=== PATIENT | female | born 1960 | race Hispanic/Latino ===

== ENCOUNTER 2017-01-10 12:36 | Observation (INO) | payer BC ==
[2017-01-10 13:38] LABS: #Eosinphils 0.1 thou/uL (0.0-0.7); #Lymphocytes 0.7 thou/uL (1.20-3.40); #Monocytes 0.8 thou/uL (0.11-0.59); #Neutrophils 7.1 thou/uL (1.40-6.50); %Eosinophils 1.1 % (0.0-10.0); %Lymphocytes 7.6 % (21.0-51.0); %Monocytes 8.8 % (0.0-10.0); Hematocrit 35.3 % (36.0-47.0); Mean Platelet Volume 6.3 fL (7.4-10.4); Red Blood Cell (RBC) Count 3.81 mill/uL (4.20-5.40); White Blood Cell (WBC) Count 8.5 thou/uL (4.8-10.8)
[2017-01-10 13:45] LABS: ALT (SGPT) 14 U/L (8-55); AST (SGOT) 20 U/L (5-34); Alkaline Phosphatase 93 U/L (40-150); Anion Gap 14 mmol/L (10-20); BUN (Urea Nitrogen) 11 mg/dL (9.8-20.1); Bilirubin, Total 0.4 mg/dL (0.2-1.2); CK (CPK) 32 U/L (29-168); Calc. Creatinine Clearance 0 mL/min (70-130); Calcium 9.4 mg/dL (7.8-10.44); Carbon Dioxide 26 mmol/L (22-29); Chloride 100 mmol/L (98-107); Estimated GFR-MDRD 69; Globulin 4.6 g/dL (2.4-3.5); Lipase 11 U/L (8-78); Protein, Total 8.3 g/dL (6.0-8.3)
[2017-01-10 13:50] LABS: Troponin I Less than 0.010 ng/mL (< 0.028)
--- NOTE | 2017-01-10 15:05 | RAD ---
SINGLE VIEW OF CHEST: Date: 01/10/17 COMPARISON: 08/10/14. HISTORY: Shortness of breath and chest pain for a day. History of right renal pelvis. FINDINGS: Single view of the chest shows a normal sized cardiomediastinal silhouette. The MediPort is unchange d in position. There is a 4.7 cm mass in the mid portion of the right lung. No pleural effusion is s een. IMPRESSION: 4.7 cm mass-like area in the right lung. This most likely represents metastatic disease. POS: BENJ[facility]
[2017-01-10 16:46] VITALS: BMI 26.8
[2017-01-10] MEDS ORDERED: FLU VACC QS2017-18 36 mo. & older 0.5 ML SYRINGE IM ONE (17:15)
[2017-01-10] MEDS ORDERED: Sodium Chloride 0.9% 1,000 ML IV SCH (17:15)
[2017-01-10] MEDS ORDERED: oxyCODONE 5 MG TAB PO PRN (17:39)
[2017-01-10 18:43] LABS: Troponin I Less than 0.010 ng/mL (< 0.028)
[2017-01-10] MEDS: Gabapentin 300 MG CAP PO SCH (20:13)
[2017-01-10] MEDS: Senokot S 8.6-50 MG TAB PO SCH (20:13)
[2017-01-10] MEDS: oxyCODONE ER 10 MG TAB PO SCH (20:13)
[2017-01-10] MEDS ORDERED: predniSONE 50 MG TAB PO SCH (20:30)
[2017-01-10] MEDS ORDERED: Enoxaparin Sodium 40 MG/0.4 ML SYRINGE SC SCH (21:00)
--- NOTE | 2017-01-10 21:25 | HP-2 ---
DATE OF SERVICE: 12/11/2016 DATE OF ADMISSION: 12/11/2016 ATTENDING PHYSICIAN: Dr. Castro. CODE STATUS: FULL. PCP: [facility]. RESIDENT: Dr. Issac Lawrence. HISTORIAN: Patient. CHIEF COMPLAINT: Right-sided chest pressure. HISTORY OF PRESENT ILLNESS: A 56-year-old female with a past medical history of renal cell carcinom a with mets to the lungs and to her bones, presents with right-sided chest pain described as constan t, but worse with breathing. The patient describes pain from right shoulder down to the diaphragm. The patient has mets to bone with recent left hip arthroplasty secondary to bone mets also with bon e biopsy done yesterday at [facility] in [place] where she is receiving care, which includes immuno therapy currently. The patient endorses some shortness of breath. Denies nausea, vomiting, diarrhe a or constipation. PAST MEDICAL HISTORY: 1. Renal cell carcinoma, bladder cancer with mets to lungs and bones. 2. Hypertension. PAST SURGICAL HISTORY: Left hip arthroplasty. ALLERGIES: HYDROCODONE, CONTRAST ORAL, and IV. MEDICATIONS: OxyContin 30 mg q.12 hours, oxycodone 10 mg q.4 hours, aspirin 81 mg daily, gabapentin 300 mg t.i.d. FAMILY HISTORY: Noncontributory. SOCIAL HISTORY: Denies tobacco, alcohol, or drug use. REVIEW OF SYSTEMS: Endorses shortness of breath and dizziness. Denies all other review of systems. PHYSICAL EXAMINATION: VITAL SIGNS: Blood pressure 122/65, pulse 101, respiratory rate 10, T-max 98.8, pulse ox 94% on kassy m air. GENERAL: Alert and oriented x3, in no apparent distress, well-developed, well-nourished, appropriat dar interactive. EYES: PERRLA, EOMI. ENT: Nasal mucosa within normal limits. Oropharynx within normal limits. NECK: Supple. No lymphadenopathy. CARDIOVASCULAR: Regular rate and rhythm. No murmur, rubs, or gallops, 2+ pedal pulses. Normal S1 and S2. RESPIRATORY: Normal effort, no retractions, clear to auscultation bilaterally. ABDOMEN: Soft, nontender to palpation. Normoactive bowel sounds. No masses or distention. EXTREMITIES: No clubbing or cyanosis. MUSCULOSKELETAL: Structure within normal limits. Normal tone. NEUROLOGIC: No focal deficits. Sensation within normal limits. Cranial nerves II-XII intact. GCS 15. LABORATORY DATA: CBC: White blood cell count 8.5, H\T\H are 11.3 and 35.3. Chemistry: Sodium 136/3.8/100/26/11/85/93. AST and ALT are 40 and 14, alkaline phosphatase 93, total bilirubin 0.4, calcium 9.4, total protein 8.3, albumin 3.7. EKG: Normal sinus rhythm. Chest x-ray: A 4.7 cm mass on the right side. ASSESSMENT AND PLAN: A 56-year-old female with past medical history of cancer mets, presen ts with atypical chest pain, admitted for atypical chest pain, rule out pulmonary embolism and acute coronary syndrome. 1. Atypical chest pain, rule out pulmonary embolism versus acute coronary syndrome. The patient's troponins were trended. A VQ scan was ordered stat as patient is allergic to IV CONTRAST. The edward ent was also placed on premedication protocol to receive a CTPA if necessary tomorrow; however, that takes 13 hours, which is why we ordered VQ scan stat. This could also be pain due to mets to patie nt's lungs. 2. Cancer mets. Restarted the patient's pain medications. Consult Dr. Ruiz in the morning. Dr Robe Ruiz was notified by the ER doctor that the patient was in the hospital will be on the service. 3. Anemia. We will continue to monitor. 4. The patient was placed on Lovenox for deep venous thrombosis prophylaxis, but will change to lore atment dose if indicated. DISPOSITION AND LENGTH OF STAY: 3 days. Symptomatic medications will be provided. History and physical exam as well as management discussed with Dr. Castro.
[2017-01-10 21:38] LABS: Troponin I Less than 0.010 ng/mL (< 0.028)
--- NOTE | 2017-01-10 23:51 | NM ---
NUCLEAR MEDICINE VENTILATION PERFUSION SCAN: (V/Q SCAN) DATE: 01/10/2017 TIME: 10:21 p.m. HISTORY: A 56-year-old female with dyspnea and acute right chest pain. TECHNIQUE: Xenon-133 gas dose: 15.6 millicuries. [id number] dose: 6.0 millicuries The patient inhaled Xenon-133 gas, and dynamic ventilation scintigraphy was performed. [id number] wa s injected IV, and multiple perfusion scintigraphic views were obtained. FINDINGS: There are no moderate-sized or large perfusion defects. There are no significant ventilation/perfus ion mismatches. There is a matching ventilation and perfusion defect in the right middle lobe, which corresponds to the pulmonary mass in that location demonstrated on the chest CT of 08/19/2016. IMPRESSION: 1. Low probability for pulmonary thromboembolism. 2. Right middle lobe pulmonary mass. zoraida [] POS: BENJY
[2017-01-11 05:36] LABS: #Lymphocytes 0.5 thou/uL (1.20-3.40); #Monocytes 0.1 thou/uL (0.11-0.59); #Neutrophils 6.3 thou/uL (1.40-6.50); %Eosinophils 0.1 % (0.0-10.0); %Lymphocytes 6.8 % (21.0-51.0); %Monocytes 0.7 % (0.0-10.0); Hematocrit 32.9 % (36.0-47.0); Mean Platelet Volume 6.3 fL (7.4-10.4); Red Blood Cell (RBC) Count 3.57 mill/uL (4.20-5.40); White Blood Cell (WBC) Count 6.9 thou/uL (4.8-10.8)
[2017-01-11 05:46] LABS: Anion Gap 10 mmol/L (10-20); BUN (Urea Nitrogen) 9 mg/dL (9.8-20.1); Calc. Creatinine Clearance 101 mL/min (70-130); Carbon Dioxide 27 mmol/L (22-29); Chloride 105 mmol/L (98-107); Estimated GFR-MDRD 90
--- NOTE | 2017-01-11 07:10 | PDOC.FM ---
- Subjective Subjective: Pt doing well. Reports pain doing much better this morning. Denies any chest pain or SOB. Is resting in bed. Has been getting up and moving around with minimal pain. No other concerns or questions at this time. - Objective MAR Reviewed: Yes Vital Signs & Weight: Vital Signs (12 hours) Temp Pulse Resp BP BP Pulse Ox 01/11/17 04:50 98.0 F 85 16 127/70 97 01/10/17 23:06 98.7 F 84 16 129/60 97 01/10/17 20:16 98.9 F 90 16 01/10/17 19:10 98.9 F 90 16 132/63 98 Weight Weight 68.402 kg I&O: 01/10/17 01/11/17 01/12/17 06:59 06:59 06:59 Intake Total 680 Output Total 150 Balance 530 Result Diagrams: 01/11/17 04:47 01/11/17 04:47 Radiology Reviewed by me: Yes Radiology: CXR 01/10: 4.7 cm mass like area in R. lung. Likely represents metastatic dz VQ scan 01/10: Low probability of PE, R. middle lobe pulm mass. Phys Exam - Physical Examination HEENT: moist MMs, oral pharynx no lesions Neck: no nodes Respiratory: no wheezing, no rales, no rhonchi, clear to auscultation bilateral Cardiovascular: RRR, no significant murmur, no rub, gallop Gastrointestinal: soft, non-tender, no distention Musculoskeletal: no edema Neurological: non-focal Psychiatric: normal affect Skin: no rash Dx/Plan (1) Atypical chest pain Code(s): R07.89 - OTHER CHEST PAIN Status: Acute (2) Cancer, metastatic Code(s): C79.9 - SECONDARY MALIGNANT NEOPLASM OF UNSPECIFIED SITE Status: Acute (3) Cancer, metastatic to lung Code(s): C78.00 - SECONDARY MALIGNANT NEOPLASM OF UNSPECIFIED LUNG Status: Acute (4) Anemia associated with chemotherapy Code(s): D64.81 - ANEMIA DUE TO ANTINEOPLASTIC CHEMOTHERAPY Status: Acute - Plan Plan: Atypical Chest Pain -Troponins normal. -No PE -Pain likely due to pulmonary mass Cancer Mets -Restarted pain medication. Pain controlled -Dr. Ruiz Consulted Anemia secondary to Cancer -Stable, will continue to follow.
[2017-01-11] MEDS ORDERED: diphenhydrAMINE 50 MG CAP PO SCH (08:00)
[2017-01-11] MEDS: oxyCODONE ER 10 MG TAB PO SCH (08:34)
[2017-01-11] MEDS: Gabapentin 300 MG CAP PO SCH (08:35)
[2017-01-11] MEDS: Senokot S 8.6-50 MG TAB PO SCH (08:35)
[2017-01-11] MEDS ORDERED: Aspirin 81 mg Enteric Coated Tablet PO SCH (09:00)
[2017-01-11] MEDS ORDERED: Enoxaparin Sodium 40 MG/0.4 ML SYRINGE SC SCH (09:00)
[2017-01-11 11:41] VITALS: BP 124/63; TEMP 98
[2017-01-11] MEDS ORDERED: FLU VACC QS2017-18 36 mo. & older 0.5 ML SYRINGE IM ONE (17:15)
--- NOTE | 2017-01-11 17:47 | HP ---
I have reviewed the history and physical of Dr. Ibis Davenport and agreed with her assessment and plan . HISTORY OF PRESENT ILLNESS: Briefly, Ms. Modi is a 56-year-old female patient with metastatic renal cell carcinoma. She presented with right-sided chest pain and was admitted for evaluation. Her EK G and troponins have all been negative. PHYSICAL EXAMINATION: VITAL SIGNS: Blood pressure 120/60, pulse rate 90, respirations 12. She is afebrile. GENERAL: She is awake, alert and pleasant, in no distress. EAR, NOSE AND THROAT: Normal. NECK: Supple. CARDIAC: Heart rhythm regular. LUNGS: Clear. ABDOMEN: Soft. LABORATORY DATA: CBC: White count 8500, hemoglobin 11.3. Chemistries: Sodium 136, potassium 3.8, chloride 100, bicarb 26. Chest x-ray shows a 5 cm mass on the right side consistent with her histo ry. ASSESSMENT: Chest pain secondary to lung mass. PLAN: Discharge as patient has to follow up with MD Bailon tomorrow.
--- NOTE | 2017-01-13 08:49 | DIS-2 ---
DATE OF ADMISSION: 01/10/2017 DATE OF DISCHARGE: 01/11/2017 ADMITTING ATTENDING: Jean-Paul Castro MD DISCHARGE ATTENDING: Jean-Paul Castro MD RESIDENT: Angel Purvis MD CONSULTATIONS: Oncology and Hematology, Dr. Ruiz. PROCEDURES: There were no procedures done. PRIMARY DIAGNOSES: 1. Atypical chest pain. 2. Metastatic cancer. 3. Cancer, metastatic to the lung. 4. Anemia associated with chemotherapy. DISCHARGE MEDICATIONS: No medication changes were made at this visit. HISTORY OF PRESENT ILLNESS AND HOSPITAL COURSE: This is a 56-year-old female with a history of maribell l cell carcinoma with mets to the lungs and her bones, who came in with right-sided chest pain, is c onstant, worse with breathing and worse with movement. The patient has had a left hip arthroplasty due to bone mets and is currently taken care of in [facility] in [place]. The patient endorses smitha rtness of breath, did not have any nausea, vomiting, diarrhea. She got a chest x-ray, which showed 4.7 cm mass-like area in the right lung, likely metastatic disease. They got a V/Q scan, which show ed no evidence of pulmonary embolism and a right middle lobe pulmonary mass. During this stay, we w orked her up for acute myocardial infarction. Troponins trended less than 0.01 in the entire time s he was here. Her labs remained stable. After consulting Dr. Ruiz, Dr. Ruiz agreed the pain w as likely due to metastatic disease. There was no acute emergency at this time. Patient had an josefa ointment at [facility] just the next day on Thursday, so at this time, we decided to discharge her an d to follow up with her Hematology/Oncology doctors at [facility] for changing pain control regimen . DISPOSITION: Guarded. DISCHARGE INSTRUCTIONS: 1. Location: Home. 2. Diet: Regular. ACTIVITIES: Activity as tolerated FOLLOWUP: She will follow up with her cancer doctors in the next day at [facility] as she already has an appointment.
== END 2017-01-11 13:22 | disposition home or self-care (01) ==
LOC: ERS 12:36 → 2SW 16:31
PROVIDERS: ADMIT Family Medicine; ATTEND Family Medicine
DX: R07.89 Other chest pain (principal); C78.02 Secondary malignant neoplasm of left lung; C78.01 Secondary malignant neoplasm of right lung; C79.51 Secondary malignant neoplasm of bone; C64.9 Malignant neoplasm of unspecified kidney, except renal pelvis; D64.81 Anemia due to antineoplastic chemotherapy; I10 Essential (primary) hypertension; Z79.82 Long term (current) use of aspirin; Z79.891 Long term (current) use of opiate analgesic; Z79.899 Other long term (current) drug therapy; Z88.5 Allergy status to narcotic agent; Z88.8 Allergy status to other drugs, medicaments and biological substances; Z91.041 Radiographic dye allergy status; Z96.642 Presence of left artificial hip joint; Z87.891 Personal history of nicotine dependence
CPT/HCPCS: 36415; 71010; 78582; 80048; 80053; 82553; 83690; 84484; 85025; 90471; 90682; 90732; 93005; 96360; 96372; A9540; A9558; G0008; G0009; G0378; J1650; Q2036

== ENCOUNTER 2017-02-22 21:40 | Emergency (ER) | payer BC, OTHER ==
--- NOTE | 2017-02-22 22:14 | CT ---
CT HEAD NONCONTRAST 02/22/17 HISTORY: Altered mental status. FINDINGS: There is no evidence of acute intracranial hemorrhage or infarct. The ventricles appears normal in si ze, shape and position. There is no mass effect or shift of midline structures. The visualized parana linda sinuses remain well aerated. IMPRESSION: No acute intracranial abnormalities are demonstrated on noncontrast CT head. POS: H
--- NOTE | 2017-02-22 22:43 | RAD ---
LEFT FEMUR TWO VIEWS 02/22/17 HISTORY: Fall. Left leg injury. FINDINGS: Left hip prosthesis is in place without perihardware lucency. No acute fracture or dislocation are vi sible. IMPRESSION: Left hip prosthesis. No acute osseous abnormalities are demonstrated. POS: [facility]
--- NOTE | 2017-02-22 22:44 | RAD ---
AP PELVIS ONE VIEW 02/22/17 HISTORY: Fall. Pelvic injury. FINDINGS: The sacrum is partially obscured by bowel gas. No displaced fractures are apparent. Pelvic rings are intact. Left hip prosthesis is partially visualized. Phleboliths project of the pelvis. IMPRESSION: Left hip prosthesis. No displaced fractures are apparent. POS: [facility]
--- NOTE | 2017-02-22 22:46 | RAD ---
LEFT KNEE THREE VIEWS: 02/22/17 HISTORY: Fall. Left knee injury. FINDINGS: Mild joint space narrowing at the medial compartment is present. There is tricompartmental osteophyto sis. No acute fracture, dislocation, or aggressive osseous erosions. Osseous structures are demineral ized. Radiopaque cement is seen throughout the femoral shaft from hip prosthesis. IMPRESSION: 1. Osteoarthritis. 2. Osteoporosis. 3. No acute osseous abnormalities of the left knee are demonstrated. POS: [facility]
--- NOTE | 2017-02-22 22:48 | RAD ---
RIGHT KNEE THREE VIEWS: 02/22/17 HISTORY: Fall. Right knee injury. FINDINGS: There is mild tricompartmental joint space narrowing and prominent osteophytosis. No acute fracture, dislocation, or fluid distention of the joint capsule are evident. IMPRESSION: Osteoarthritis right knee. POS: [facility]
[2017-02-22] MEDS ORDERED: Fentanyl 100 MCG/2 ML VIAL ONE (22:59)
[2017-02-22 23:02] LABS: Band 14 % (5-11); Hematocrit 29.7 % (36.0-47.0); Mean Platelet Volume 6.6 fL (7.4-10.4); Neutrophil 80 % (42-75); Red Blood Cell (RBC) Count 3.21 mill/uL (4.20-5.40); White Blood Cell (WBC) Count 24.9 thou/uL (4.8-10.8)
[2017-02-22 23:03] LABS: ALT (SGPT) 14 U/L (8-55); AST (SGOT) 21 U/L (5-34); Alkaline Phosphatase 277 U/L (40-150); Anion Gap 10 mmol/L (10-20); BUN (Urea Nitrogen) 12 mg/dL (9.8-20.1); Bilirubin, Total 0.7 mg/dL (0.2-1.2); Calc. Creatinine Clearance 0 mL/min (70-130); Carbon Dioxide 28 mmol/L (22-29); Chloride 93 mmol/L (98-107); Estimated GFR-MDRD 74; Globulin 3.7 g/dL (2.4-3.5); Magnesium 1.8 mg/dL (1.6-2.6); Protein, Total 6.3 g/dL (6.0-8.3)
[2017-02-23 00:56] LABS: Bilirubin Small (Negative); Blood, Urine Negative (Negative); Glucose, Urine (Dipstick) Negative (Negative); Ketone, Urine Trace mg/dL (Negative); Nitrite Negative (Negative); Protein, Urine (Dipstick) Trace mg/dL (Neg-Trace)
[2017-02-23 00:59] LABS: Bacteria/HPF None Seen HPF (None Seen); Hyaline Casts/LPF 0-3 HYALINE CAST LPF (0-3 Hyaline); RBC/HPF 0-3 HPF (0-3); Squamous Epithelial 0-3 HPF (0-3); WBC/HPF 0-3 HPF (0-3)
[2017-02-23] MEDS ORDERED: Morphine 2 mg/2ml in 0.9% NaCl PF SYRINGE ONE (02:37)
== END 2017-02-23 02:50 | disposition home or self-care (01) ==
LOC: ERS 21:40
DX: E86.0 Dehydration (principal); E87.1 Hypo-osmolality and hyponatremia; C34.90 Malignant neoplasm of unspecified part of unspecified bronchus or lung; C79.51 Secondary malignant neoplasm of bone
CPT/HCPCS: 36415; 51701; 70450; 72170; 80053; 81003; 81015; 83735; 85025; 93005; 96361; 96374; 96375; A4353; J2270; J3010